=== PATIENT | female | born 1965 | race Caucasian/White ===

== ENCOUNTER 2020-12-06 20:45 | Emergency (ER) | payer BC, SELFPAY | END 2020-12-07 01:10 | disposition home or self-care (01) | LOC: CSHERS 20:45 | DX: R51.9 Headache, unspecified (principal); W19.XXXA Unspecified fall, initial encounter | CPT/HCPCS: 70450; 72125; 93005 ==

== ENCOUNTER 2023-06-27 08:14 | Outpatient (CLI) | payer BC ==
[2023-06-27 09:34] LABS: Hematocrit 39.7 % (34.9-44.5); Hemoglobin 13.8 g/dL (12.0-15.5); Mean Corpuscular HGB CONC 34.8 g/dL (32.0-36.0); Mean Corpuscular Hemoglobin 31.2 pg (27.0-33.0); Mean Corpuscular Volume 89.8 fl (81.6-98.3); Mean Platelet Volume 10.4 fl (7.4-10.4); Platelet Count 321 10x3/uL (150-450); RBC Distribution Width 13.4 % (11.5-14.5); Red Blood Cell (RBC) Count 4.42 10x6/uL (3.90-5.03); White Blood Cell (WBC) Count 4.2 10x3/uL (3.5-10.5)
[2023-06-27 09:55] LABS: INR-International Normal Ratio 0.9; PTT 32.2 sec (22.0-33.0); Prothrombin Time 9.9 sec (9.5-12.1)
[2023-06-27 09:57] LABS: Anion Gap 14 mmol/L (10-20); BUN (Urea Nitrogen) 13 mg/dL (9.8-20.1); Calc. Creatinine Clearance 0 mL/min (70-130); Calcium 9.1 mg/dL (7.8-10.44); Carbon Dioxide 23 mmol/L (22-29); Chloride 104 mmol/L (98-107); Estimated GFR 96; Glucose 153 mg/dL (70-105); Potassium 3.9 mmol/L (3.5-5.1); Sodium 137 mmol/L (136-145)
[2023-06-27 10:01] LABS: ALT (SGPT) 54 U/L (8-55); AST (SGOT) 46 U/L (5-34); Albumin 3.9 g/dL (3.5-5.0); Alkaline Phosphatase 157 U/L (40-110); Bilirubin, Direct 0.2 mg/dL (0.1-0.3); Bilirubin, Total 0.5 mg/dL (0.2-1.2)
== END 2023-06-27 08:15 | disposition home or self-care (01) ==
LOC: CSHLAB 08:14
PROVIDERS: ATTEND Surgery
DX: Z01.818 Encounter for other preprocedural examination (principal); M33.90 Dermatopolymyositis, unspecified, organ involvement unspecified
CPT/HCPCS: 80048; 80076; 85027; 85610; 85730; 93005; 93010

== ENCOUNTER 2023-06-28 05:57 | Day surgery (SDC) | payer BC ==
[2023-06-27 08:43] VITALS: BMI 30.6
[2023-06-28] MEDS ORDERED: Bupivacaine PF 0.5% 30 ML VIAL ONE (06:27)
[2023-06-28] MEDS ORDERED: EPINEPHrine 1 MG/ML VIAL ONE (06:27)
[2023-06-28] MEDS ORDERED: Midazolam HCl 2 mg/2 ml Vial ONE (06:48)
[2023-06-28] MEDS ORDERED: CEFAZOLIN 2 GM VIAL ONE (06:48)
[2023-06-28] MEDS ORDERED: Lidocaine 2% PF 5 ML VIAL ONE (06:53)
[2023-06-28] MEDS ORDERED: PROPOFOL 20 ML ONE (06:53)
[2023-06-28] MEDS ORDERED: fentaNYL 50 mcg/mL 1 mL Vial ONE (06:53)
[2023-06-28] MEDS ORDERED: Ondansetron PF 4 MG/2 ML Vial ONE (07:26)
[2023-06-28] MEDS ORDERED: Dexamethasone 4 mg/ml Vial ONE (07:26)
[2023-06-28] MEDS ORDERED: Acetaminophen 325 MG TAB PO PRN (07:47)
[2023-06-28] MEDS ORDERED: HYDROcodone/Acetaminophen 5/325 mg Tablet PO PRN (07:47)
[2023-06-28] MEDS ORDERED: HYDROcodone/Acetaminophen 5/325 mg Tablet ONE ×2 (08:23→08:24)
== END 2023-06-28 09:15 | disposition home or self-care (01) ==
LOC: CSHSDC 05:57
PROVIDERS: ATTEND Surgery
PROC: 0JH60WZ Insertion of Totally Implantable Vascular Access Device into Chest Subcutaneous Tissue and Fascia, Open Approach (ICD-10-PCS; principal; 2023-06-28)
DX: M33.13 Other dermatomyositis without myopathy (principal); L93.0 Discoid lupus erythematosus; I10 Essential (primary) hypertension; Z79.899 Other long term (current) drug therapy; Z91.041 Radiographic dye allergy status; Z91.048 Other nonmedicinal substance allergy status; Z88.5 Allergy status to narcotic agent
CPT/HCPCS: 71045; A6258; C1788; J0171; J0665; J1100; J1642; J2001; J2250; J2405; J2704; J3010